=== PATIENT | female | born 1955 | race Caucasian/White ===

== ENCOUNTER 2024-07-15 04:47 | Emergency (ER) | payer MEDICARE ==
[2024-07-15] MEDS ORDERED: Labetalol HCl 100 MG/20 ML VIAL ONE ×2 (05:25→08:10)
[2024-07-15 05:46] LABS: #Basophils Less than 0.03 10x3/uL (0.0-0.2); %Basophils 0.3 % (0.0-1.0); %Eosinophils 2.9 % (0.0-10.0); %Lymphocytes 23.2 % (21.0-51.0); %Neutrophils 64.3 % (42.0-75.0); Hematocrit 41.9 % (36.0-47.0); Hemoglobin 13.3 g/dL (12.0-16.0); Mean Corpuscular HGB CONC 31.7 g/dL (32.0-36.0); Mean Corpuscular Hemoglobin 29.4 pg (27.0-31.0); Mean Corpuscular Volume 92.7 fL (78.0-98.0); Mean Platelet Volume 11.5 fL (7.4-10.4); Platelet Count 137 10x3/uL (130-400); RBC Distribution Width 14.9 % (11.5-14.5); Red Blood Cell (RBC) Count 4.52 mill/uL (4.20-5.40)
[2024-07-15 05:50] LABS: INR-International Normal Ratio 1.5; PTT 28.8 sec (22.9-36.1); Prothrombin Time 17.7 sec (12.0-14.7)
[2024-07-15] MEDS ORDERED: hydrALAZINE 20 MG/ML VIAL ONE (06:08)
[2024-07-15 06:22] LABS: ALT (SGPT) 14 U/L (Less than 34); AST (SGOT) 37 U/L (11-34); Albumin 3.7 g/dL (3.1-4.5); Alkaline Phosphatase 32 U/L (40-110); Anion Gap 16 mmol/L (10-20); BUN (Urea Nitrogen) 46 mg/dL (9.8-20.1); Bilirubin, Total 0.7 mg/dL (0.3-1.2); Calc. Creatinine Clearance 0 mL/min (70-130); Calcium 9.4 mg/dL (7.8-10.44); Carbon Dioxide 22 mmol/L (23-31); Chloride 106 mmol/L (98-107); Estimated GFR 26; Globulin 2.8 g/dL (2.4-3.5); Glucose 106 mg/dL (80-115); Protein, Total 6.5 g/dL (5.8-8.1); Sodium 139 mmol/L (136-145)
[2024-07-15] MEDS ORDERED: Tranexamic Acid 1,000 MG/10 ML VIAL ONE (06:28)
[2024-07-15] MEDS ORDERED: Lidocaine 1% w/Epinephrine 1:100K 20 ML VIAL ONE (06:28)
[2024-07-15] MEDS ORDERED: Oxymetazoline HCl 0.05% (30 ML BOT) ONE (06:29)
== END 2024-07-15 09:05 | disposition home or self-care (01) ==
LOC: ERS 04:47
DX: R04.0 Epistaxis (principal); I10 Essential (primary) hypertension; E11.9 Type 2 diabetes mellitus without complications; Z87.891 Personal history of nicotine dependence
CPT/HCPCS: 80053; 85025; 85610; 85730; J0360; 96374; 96375; 96376

== ENCOUNTER 2024-07-18 22:14 | Emergency (ER) | payer MEDICARE ==
[2024-07-18] MEDS ORDERED: Oxymetazoline HCl 0.05% (30 ML BOT) ONE (22:38)
[2024-07-18 23:09] LABS: #Basophils 0.05 10x3/uL (0.0-0.2); %Basophils 0.8 % (0.0-1.0); %Eosinophils 3.2 % (0.0-10.0); %Lymphocytes 17.5 % (21.0-51.0); %Monocytes 10.7 % (0.0-10.0); %Neutrophils 67.5 % (42.0-75.0); Hemoglobin 11.3 g/dL (12.0-16.0); Mean Corpuscular HGB CONC 30.5 g/dL (32.0-36.0); Mean Corpuscular Hemoglobin 29.3 pg (27.0-31.0); Mean Corpuscular Volume 95.9 fL (78.0-98.0); Mean Platelet Volume 10.3 fL (7.4-10.4); Platelet Count 135 10x3/uL (130-400); RBC Distribution Width 15.2 % (11.5-14.5); Red Blood Cell (RBC) Count 3.86 mill/uL (4.20-5.40)
[2024-07-18 23:19] LABS: INR-International Normal Ratio 1.3; PTT 24.8 sec (22.9-36.1); Prothrombin Time 16.3 sec (12.0-14.7)
[2024-07-18 23:27] LABS: ALT (SGPT) 14 U/L (Less than 34); AST (SGOT) 27 U/L (11-34); Albumin 3.3 g/dL (3.1-4.5); Alkaline Phosphatase 31 U/L (40-110); Anion Gap 12 mmol/L (10-20); BUN (Urea Nitrogen) 44 mg/dL (9.8-20.1); Bilirubin, Total 0.5 mg/dL (0.3-1.2); Calc. Creatinine Clearance 0 mL/min (70-130); Calcium 8.6 mg/dL (7.8-10.44); Carbon Dioxide 22 mmol/L (23-31); Chloride 113 mmol/L (98-107); Estimated GFR 27; Globulin 2.4 g/dL (2.4-3.5); Glucose 118 mg/dL (80-115); Potassium 4.7 mmol/L (3.5-5.1); Protein, Total 5.7 g/dL (5.8-8.1); Sodium 142 mmol/L (136-145)
== END 2024-07-18 23:56 | disposition home or self-care (01) ==
LOC: ERS 22:14
DX: R04.0 Epistaxis (principal); I10 Essential (primary) hypertension; E11.9 Type 2 diabetes mellitus without complications; Z95.0 Presence of cardiac pacemaker; Z87.891 Personal history of nicotine dependence
CPT/HCPCS: 36415; 80053; 85025; 85610; 85730; 99283